=== PATIENT | female | born 1965 | race Caucasian/White ===

== ENCOUNTER 2020-12-07 16:07 | Inpatient (IN) ==
[2020-12-07] MEDS ORDERED: *HR* LORazepam 1 MG TABLET PO PRN (22:24)
[2020-12-07] MEDS ORDERED: *HR* LORazepam 2 MG/ML VIAL IM PRN (22:24)
[2020-12-07] MEDS ORDERED: haloperidoL 5 MG TABLET PO PRN (22:24)
[2020-12-07] MEDS ORDERED: Haloperidol Lactate 5 MG/ML VIAL IM PRN (22:24)
[2020-12-08] MEDS: Acetaminophen 325 MG TABLET PO PRN ×2 (05:02→16:51)
[2020-12-08] MEDS ORDERED: Mag Hydrox/Al Hydrox/Simeth 30 ML UDC PO PRN (09:41)
[2020-12-08] MEDS ORDERED: MOM Conc 10 ML UD.LIQ PO PRN (09:41)
[2020-12-08] MEDS: Ibuprofen 400 MG TABLET PO PRN ×2 (10:05→18:19)
[2020-12-09] MEDS: QUEtiapine Fumarate 25 MG TABLET PO PRN ×2 (00:55→20:45)
[2020-12-09] MEDS: Ibuprofen 400 MG TABLET PO PRN ×2 (00:55→11:48)
[2020-12-09] MEDS: Acetaminophen 325 MG TABLET PO PRN ×3 (08:14→23:39)
[2020-12-09] MEDS ORDERED: Fluconazole 150 MG TABLET PO ONE (16:02)
[2020-12-09] MEDS: Ibuprofen 800 MG TABLET PO PRN (20:45)
[2020-12-10] MEDS: Ibuprofen 800 MG TABLET PO PRN ×2 (08:05→16:36)
[2020-12-10] MEDS: Nicotine 21 MG PATCH.TD24 TD SCH (13:29)
[2020-12-10] MEDS: Acetaminophen 325 MG TABLET PO PRN ×2 (13:30→21:43)
[2020-12-10 19:51] LABS: Chlamydia Trachomatis DNA Ur NOT DETECTED (Not Detect)
[2020-12-10] MEDS: QUEtiapine Fumarate 100 MG TABLET PO SCH (21:43)
[2020-12-10] MEDS: Divalproex (24 HR) 500 MG TABLET PO SCH (21:43)
[2020-12-10] MEDS: QUEtiapine Fumarate 25 MG TABLET PO PRN (22:56)
[2020-12-11] MEDS: Ibuprofen 800 MG TABLET PO PRN ×2 (06:53→17:57)
[2020-12-11] MEDS: Nicotine 21 MG PATCH.TD24 TD SCH (08:48)
[2020-12-11] MEDS: Divalproex (24 HR) 250 MG TABLET PO SCH (08:48)
[2020-12-11] MEDS: Acetaminophen 325 MG TABLET PO PRN ×2 (13:14→20:56)
[2020-12-11] MEDS: Divalproex (24 HR) 500 MG TABLET PO SCH (20:55)
[2020-12-11] MEDS: QUEtiapine Fumarate 100 MG TABLET PO SCH (20:55)
[2020-12-11] MEDS: QUEtiapine Fumarate 25 MG TABLET PO PRN (20:56)
[2020-12-12] MEDS: hydrOXYzine pamoate 25 MG CAPSULE PO PRN ×2 (02:08→20:43)
[2020-12-12] MEDS: Nicotine 21 MG PATCH.TD24 TD SCH (09:03)
[2020-12-12] MEDS: Divalproex (24 HR) 250 MG TABLET PO SCH (09:03)
[2020-12-12] MEDS: Ibuprofen 800 MG TABLET PO PRN (11:54)
[2020-12-12] MEDS: QUEtiapine Fumarate 100 MG TABLET PO SCH (20:41)
[2020-12-12] MEDS: Divalproex (24 HR) 500 MG TABLET PO SCH (20:42)
[2020-12-12] MEDS: Acetaminophen 325 MG TABLET PO PRN (20:42)
[2020-12-13] MEDS: Ibuprofen 800 MG TABLET PO PRN (08:26)
[2020-12-13] MEDS: Divalproex (24 HR) 250 MG TABLET PO SCH (08:26)
[2020-12-13] MEDS: Nicotine 21 MG PATCH.TD24 TD SCH (09:05)
[2020-12-13] MEDS: Acetaminophen 325 MG TABLET PO PRN ×2 (15:39→21:21)
[2020-12-13] MEDS: Divalproex (24 HR) 500 MG TABLET PO SCH (21:20)
[2020-12-13] MEDS: QUEtiapine Fumarate 100 MG TABLET PO SCH (21:23)
[2020-12-14] MEDS: Divalproex (24 HR) 250 MG TABLET PO SCH (08:03)
[2020-12-14] MEDS: Nicotine 21 MG PATCH.TD24 TD SCH (08:03)
[2020-12-14] MEDS: Acetaminophen 325 MG TABLET PO PRN (20:29)
[2020-12-14] MEDS: Divalproex (24 HR) 500 MG TABLET PO SCH (20:29)
[2020-12-14] MEDS: QUEtiapine Fumarate 100 MG TABLET PO SCH (20:29)
[2020-12-15] MEDS: hydrOXYzine pamoate 25 MG CAPSULE PO PRN (03:32)
[2020-12-15] MEDS: Nicotine 21 MG PATCH.TD24 TD SCH (07:52)
[2020-12-15] MEDS: Divalproex (24 HR) 250 MG TABLET PO SCH (07:54)
[2020-12-15] MEDS: Ibuprofen 800 MG TABLET PO PRN ×2 (07:54→17:59)
[2020-12-15 08:12] VITALS: BP 118/79
[2020-12-15] MEDS: Acetaminophen 325 MG TABLET PO PRN (14:53)
== END 2020-12-15 19:15 | disposition other institution (70) | DRG 754 ==
LOC: EMEROOARM 16:07 → 1ANU 22:23
PROVIDERS: ADMIT Psychiatry & Neurology Psychiatry; ATTEND Psychiatry & Neurology Psychiatry